=== PATIENT | male | born 1995 | race Caucasian/White ===

== ENCOUNTER 2020-10-19 19:01 | Emergency (ER) | payer OTHER ==
--- NOTE | 2020-10-19 21:09 | ER ---
Nurse's Notes [facility] Name: Basim Loo Age: 25 yrs Sex: Male : 1995 Arrival Date: 10/19/2020 Time: 19:04 Bed Waiting Private MD: Diagnosis: Presentation: 10/19 20:30 Chief complaint: Patient states: Rash all over body, Sharp pains in chest, nausea, body kg numbness, feet swelling starting at 17:30. Coronavirus screen: Client denies travel out of the [place] in the last 14 days. At this time, unable to obtain information related to travel outside the [place] Ebola Screen: Patient negative for fever greater than or equal to 101.5 degrees Fahrenheit, and additional compatible Ebola Virus Disease symptoms Patient denies exposure to infectious person. Patient denies travel to an Ebola-affected area in the 21 days before illness onset. 20:30 Method Of Arrival: Wheelchair kg 20:35 Onset: The symptoms/episode began/occurred suddenly. Anaphylaxis evaluation, no signs kg or symptoms of anaphylaxis were noted. Initial Sepsis Screen: Does the patient meet any 2 criteria? No. Patient's initial sepsis screen is negative. Does the patient have a suspected source of infection? No. Patient's initial sepsis screen is negative. Risk Assessment: Do you want to hurt yourself or someone else? Patient reports no desire to harm self or others. Onset of symptoms was October 19, 2020 at 17:30. 20:35 Acuity: MONSE 4 kg Triage Assessment: 20:35 General: Appears in no apparent distress. Behavior is calm, cooperative, appropriate kg for age, quiet. Pain: Denies pain. Historical: - Allergies: 20:35 No Known Allergies; kg - Home Meds: 20:35 None [Active]; kg - PMHx: 20:35 None; kg - PSHx: 20:35 None; kg - Immunization history:: Adult Immunizations not up to date, Client reports having NOT received the Covid vaccine. - Social history:: Smoking status: Patient denies any tobacco usage or history of. Patient uses alcohol, occasionally. Screenin:36 Abuse screen: Denies threats or abuse. Denies injuries from another. Nutritional kg screening: No deficits noted. Tuberculosis screening: No symptoms or risk factors identified. Fall Risk None identified. Assessment: 20:37 Neuro: Reports dizziness, weakness. Respiratory: Airway is patent Respiratory effort is kg even, unlabored, relaxed, Breath sounds are clear bilaterally. GI: Reports nausea. 20:37 Derm: Rash noted that is red, raised. kg Vital Signs: 20:30 BP 116 / 68; Pulse 95; Resp 18; Temp 97.6(O); Pulse Ox 100% on R/A; Weight 77.11 kg kg (R); Height 6 ft. 0 in. (182.88 cm); Pain 0/10; 20:30 Body Mass Index 23.06 (77.11 kg, 182.88 cm) kg ED Course: 19:04 Patient arrived in ED. rg4 20:35 Triage completed. kg 20:35 Arm band placed on right wrist. kg 20:36 Patient has correct armband on for positive identification. kg 20:41 Uriel Tesfaye MD is Attending Physician. tw4 Administered Medications: No medications were administered Outcome: 21:09 Patient left the ED. kg Signatures: Vianca Davidson rg4 Uriel Tesfaye MD MD tw4 Alysia Navas, RN RN kg
[2020-10-19 21:18] VITALS: BP 116/68; TEMP 97.6; O2SAT 100
== END 2020-10-19 21:09 | disposition left against medical advice (07) ==
LOC: ER 19:01
DX: Z53.21 Procedure and treatment not carried out due to patient leaving prior to being seen by health care provider (principal)
CPT/HCPCS: 99281